=== PATIENT | male | born 1995 | race Caucasian/White ===

== ENCOUNTER 2020-11-21 07:31 | Outpatient (REF) | payer MEDICAID, SELFPAY ==
[2020-11-21 08:31] LABS: Estimated Average Glucose 111 mg/dL; Hemoglobin A1c % 5.5 %
[2020-11-21 08:44] LABS: Anion Gap 14 (12-20); Blood Urea Nitrogen 13 mg/dL (9-16); Calcium 9.8 mg/dL (8.4-10.2); Carbon Dioxide 25 mmol/L (22-29); Chloride 104 mmol/L (96-108); Cholesterol 170 mg/dL; Estimated Glomerular Filt Rate > 60; Glucose Random 95 mg/dL (60-115); HDL Cholesterol 45 mg/dL; LDL Cholesterol Calculated 105 mg/dl; Potassium 4.6 mmol/L (3.3-5.1); Sodium 138 mmol/L (135-145); Triglycerides 103 mg/dL
== END 2020-11-21 07:32 | disposition home or self-care (01) ==
LOC: HO.LAB 07:31
PROVIDERS: Absent Provider Internal Medicine Geriatric Medicine; PCP Internal Medicine Geriatric Medicine; Visit Provider Nurse Practitioner Family
DX: I69.015 Cognitive social or emotional deficit following nontraumatic subarachnoid hemorrhage (principal); S80.02XA Contusion of left knee, initial encounter; Z71.89 Other specified counseling
CPT/HCPCS: 36415; 80048; 80061; 83036

== ENCOUNTER 2021-08-23 07:29 | Outpatient (REF) | payer MEDICAID, SELFPAY ==
[2021-08-23 09:27] LABS: Hematocrit 44.3 % (42.0-52.0); Hemoglobin 13.7 g/dl (14.0-18.0); Mean Corpuscular HGB Conc 30.9 g/dl (31.0-36.0); Mean Corpuscular Volume 80.7 fL (80.0-98.0); Mean Platelet Volume 10.3 fL (9.4-12.4); Platelet Count 266 X10*3/uL (160-400); Red Blood Count 5.49 X10*6/uL (4.60-5.80); Red Cell Distribution Width 13.2 % (11.0-16.0); White Blood Count 6.1 X10*3/uL (4.8-10.8)
[2021-08-23 09:36] LABS: Estimated Average Glucose 120 mg/dL; Hemoglobin A1C 149.4792 umol/L; Hemoglobin A1c % 5.8 %
[2021-08-23 09:59] LABS: Alanine Aminotransferase 19 U/L (0-40); Albumin Level 4.6 g/dL (3.5-5.0); Alkaline Phosphatase 102 U/L (39-117); Anion Gap 12 (12-20); Aspartate Amino Transferase 18 U/L (5-37); Bilirubin Direct < 0.2 mg/dL (0.0-0.5); Bilirubin Total 0.4 mg/dL (0.0-1.0); Blood Urea Nitrogen 19 mg/dL (9-16); Calcium 10.1 mg/dL (8.4-10.2); Carbon Dioxide 27 mmol/L (22-29); Chloride 105 mmol/L (96-108); Cholesterol 207 mg/dL; Estimated Glomerular Filt Rate > 60; Glucose Random 101 mg/dL (60-115); HDL Cholesterol 42 mg/dL; LDL Cholesterol Calculated 146 mg/dl; Potassium 5.1 mmol/L (3.3-5.1); Sodium 139 mmol/L (135-145); Triglycerides 98 mg/dL
== END 2021-08-23 07:30 | disposition home or self-care (01) ==
LOC: HO.LAB 07:29
PROVIDERS: PCP Internal Medicine Geriatric Medicine; Visit Provider Internal Medicine Geriatric Medicine
DX: Z00.00 Encounter for general adult medical examination without abnormal findings (principal); Z13.1 Encounter for screening for diabetes mellitus; Z13.220 Encounter for screening for lipoid disorders
CPT/HCPCS: 36415; 80048; 80061; 80076; 83036; 85027

== ENCOUNTER 2024-07-04 08:15 | Outpatient (REF) | payer MEDICAID, SELFPAY ==
--- OUTSIDE RECORDS SUMMARY | 2024-07-04 08:29 | XMS_ITS | Data Portability ---
Author Organization [place] [facility] Address [address] [place] [address] Care Team Providers Care Chlorobutadiene Scrubber Operator Name Role Phone NAME, CATHERINE Primary Care Provider Assessment Encounter Date Assessment Date Assessment LastModified by Organization Details LastModified Time 07/05/2020 07/05/2020 Overview/History : 25yo male with a PMHx of Microcephaly, CP, ADHD, disturbance of salivary secretions & legally blind being seen today for crack in callus of R foot. No signs of infection or pain, pt is ambulating as normal. Exam: Limited d/t patients combativeness Pt is alert, moving all extremities, drooling and biting at his R hand, intermittently attempting to hit provider and staff Plantar Callus noted under R foot- no erythema or warmth, palpable pulses +CSM, no edema DDx considered, but not limited to: Plantar callus- likely Plantars wart considered Cellulitis considered- no signs of infection Plantar wound- no open area Acute fracture- no deformity or pain upon manipulation Work up/Results: Physical exam of foot only Plan/Discussion: Staff in agreement this is a condition he has had since he was a child, no signs of infection. Treatment would be a pumice stone/cream treatment however he would never tolerate this. He is combative at baseline, barely allowed examination. No new medications or recommendations. The patient is advised to make an appt with PCP in 3-5 days to discuss ongoing symptoms/ further management if needed. The patient is also advised to go to the ED immediately for any worsening symptoms. The patient understood and agreed with this plan. The patient was given discharge instructions and all questions were answered prior to DH team departure. Proper Personal Protective Equipment (PPE), including gloves, eye protection and masks were donned and doffed appropriately and all equipment cleaned using approved technique with germicidal disposable wipes prior to and after care of this patient according to [facility]'s infection prevention protocols. Time On Scene with Patient: 00:48:11 [email or web address] Not available 07/05/2020 16:18:28 10/19/2020 10/19/2020 Time On Scene with Patient: 01:02:35 [email or web address] Not available 10/19/2020 13:58:50 Plan of Treatment Reminders Order Date Submit Date Provider Last Modified By Organization Details Last Modified Time Details Appointments None recorded. Lab None recorded. Referral None recorded. Procedures None recorded. Surgeries None recorded. Imaging None recorded. Medication Orders Motrin IB 200 mg capsule 021 021 [facility], [address], [place], [place], [id number], 18:32:32 Patient TargetsNo targets recorded. Patient Instructions Encounter Date Encounter Id Patient Instructions Last Modified By Organization Details Last Modified Time 07/05/2020 [id number] Hand written instructions provided. [email or web address] Not available 07/05/2020 16:05:05 10/19/2020 [id number] learning about rice (rest, ice, compression, and elevation) Not available 10/19/2020 13:21:50 YOU WERE SEEN TODAY FOR LEFT KNEE PAIN AND SOFT TISSUE SWELLING. THERE IS NO EVIDENCE OF FRACTURE. WE PRESCRIBED MOTRIN 400 MG ORALL 3 TIMES A DAY WITH MEALS FOR THE NEXT FOUR DAYS NEEDED FOR THE SWELLING. IF SYMPTOMS RESOLVE PRIOR TO THE 4 DAYS, DC THE MEDICATION. PLEASE TAKE WITH FOOD. PLEASE UTILIZE RICE THERAPY TO ALLEVIATE SWELLING. REST ICE COMPRESSION (NOT NECESSARY) ELEVATE WE REALIZE THAT RICE THERAPY MAY IMPOSE A CHALLENGE GIVEN COGNITION OF PATIENT. PLEASE FOLLOW UP WITH PCP NEEDED. IF YOU DEVELOP FEVER, INCREASED SWELLING, REDNESS, INABILITY TO BEAR WT/WALK, PLEASE GO TO THE ER. Thank you for your visit with [facility] today. We cannot always find the exact cause of your symptoms during your initial visit. Please follow up with your primary care provider or specialist as needed to be rechecked or seek medical attention if your symptoms do not go away or get worse. If you develop any new or worsening symptoms and need after hours care, please go to nearest ER and/or call 911. If you have additional concerns or develop a change in your condition between 8am-10pm, please call [facility] at [phone] to help navigate your care. Not available 10/19/2020 13:24:22 Reason for Referral None Reported. Procedures Surgical History Date Name Laterality Status Provider Name and Address Organization Details Recorded Time 07/05/19 21 Medication Review completed Xiomy Em NP [address], [place], [address], [place] [facility] 07/05/2020 16:02:44 Imaging Results None recorded. Procedure Notes None recorded. Medical Equipment None Reported. Allergies No known drug allergies Medications Name Sig Start Date Stop Date Status Note LastModified by Organization Details LastModified Time clonidine HCl 0.1 mg tablet TAKE 1 TABLET BY MOUTH TWICE A DAY (8 AM AND 8 PM) active Not Available Not Available No t Available lorazepam 1 mg tablet TAKE 1 TABLET BY MOUTH 1 HOUR PRIOR TO MEDICAL APPTS, DENTAL APPTS, OR EYE EXAMS active Not Available Not Available No t Available Risperdal active Not Available Not Camryn ilable Not Available Motrin IB 200 mg capsule Take 2 capsules 3 times a day by oral route with meals for 4 days. 021 active Not Available Not Available Not Avai lable Vitals Date Recorded Respiratory rate Body temperature Provider Name and Address Organization Details Last Updated DateTime 10/19/2020 22 /min 98.7 [degF] Not Available [facility] 10/19/2020 13:03:10 Social History Question Answer Notes LastModified by Organizat ion Details LastModified Time Tobacco Smoking Status Never Smoker Xiomy Em NP [address], [place], [address], [place] [facility] 07/05/2020 16:15:41 Do You Have An Advance Directive? No Information not available 10/19/2020 What Is Your Code Status? Full Code Information not available 10/19/2020 Within The Past 12 Months, Has It Happened That The Food You Bought Just Didn't Last And You Didn't Have Money To Get More. No Information not available 10/19/2020 Within The Past 12 Months, Have You Worried That Your Food Would Run Out Before You Got Money To Buy More. No Information not available 10/19/2020 Fall Risk: Do You Feel Unsteady When Standing Or Walking? No Information not available 10/19/2020 We Know That How And When People Interact With Friends And Family Can Be Very Different From Person To Person. How Often Do You Have The Opportunity To See Or Talk To People That You Care About And Feel Close To? (Ex: Talking To Friends On The Phone Or Visiting Friends Or Family Or Going To [employer] Or Club Meetings) 1 Or 2 Times Per Week Information not available 10/19/2020 Excessive Alcohol Or Drug Use No Information not available 10/19/2020 We Know From Many Of Our Patients That Covering All Of Their Costs Can Be Difficult At Times. This Can Cause Stress And Impact Health. In The Past Year, Have You Been Unable To Get Any Of The Following When It Was Really Needed? No Information not available 10/19/2020 What Is Your Housing Situation Today? I Have Housing Information not available 10/19/2020 Would You Like Help Connecting To Resources? None Information not available 10/19/2020 Sex: Unknown Functional Status None recorded. Mental Status None recorded. Family History Nothing Reported Notes:pt nonverbal- familyhx unknown Medical History Condition Response Coronary Artery Disease N Depression N COPD N Cancer N Stroke N High Cholesterol N Kidney Disease N Diabetes N Asthma N Pulmonary Embolism N Hypertension N Past Encounters Encounter ID Performer Location Encounter Start Date Encounter Closed Date Diagnosis/Indication Diagnosis SNOMED-CT Code Diagnosis ICD10 Code Diagnosis Note [id number] Xiomy Em NP [facility] [address] [place] [address] 07/05/2020 15:38:32 07/08/2020 12:16:38 Foot callus 399882336 L84 Cerebral palsy 036165354 G80.9 microcephaly 93126 5009 Q02 Combativeness 642524830 F91.8 [id number] Emerald Morris NP [facility] [address] [place] [address] 10/19/2020 12:56:05 10/22/2020 17:37:26 Soft tissue swelling of knee joint 033074290 M25.469 Overview/H istory: Patient is a 25 year old male who is responsive to voice and touch. Patient chief complaint is a left knee injury suffered 4 days ago while running into his room, patient fell to his knees per staff. Patient medical history significan t for cerebral palsy, ADHD, microcepha ly, cognitive impairment , disturbanc e of salivery secretions and he is legally blind. Exam: able to obtain tympanic temperatur e, HR via auscultati on and respirator y rate this visit, successive attempts to obtain BP, 02 sat increased patient level of agitation. He did attempt to strike staff, provider and bite his hand in frustratio n with repeat attempts. Due to safety concerns, no BP and 02 sat readings obtained. HRR 88, S1, S2. LSCTA bilaterall y, no work of breathing, Abdomen SNT, + bowel sounds x 4 quads. Self ambulatory patient, moves all limbs without deficit. Patient gait unimpaired . There is minimal edema to anterior aspect of left knee. No balloting. Patient ROM to left knee intact. No crepitus. Left medial ecchymosis noted. I am able to palpate the left knee, patient does not indicate that there is pain. The right knee is normal in appearance , full ROM. No bruising, no ecchymosis . Negative Radha's sign bilaterall y. DDx considered , but not limited to: Soft tissue injury likely, no evidence of crepitus Left knee FX considered , no crepitus DVT unlikely, negative Homans Work up/Results : Exam Plan/Discu ssion: 1. RICE therapy reviewed 2. Motrin 400 mg PO 3 x daily with food while symptomati c with left knee swelling 3. XRAY considered , however patient would likely require sedation to complete procedure. Exam findings do not indicate fracture. Staff agrees to monitor swelling closely and monitor for improvemen t. Discussed acute ED precaution s. Staff is able to reiterate all discussed. Proper Personal Protective Equipment (PPE), including {{gloves, eye protection , masks, and gowns, shoe covers micah ves, eye protection and masks* micah ves, eye protection gloves, eye protection , N95 mask, gown, and shoe covers tiffanie gical mask with face-shiel d, gloves, gown and shoe covers tiffanie gical mask with face-shiel d, gloves}} [facility] and all equipment cleaned using approved technique with germicidal disposable wipes prior to and after care of this patient according to [facility]'s infection prevention protocols. In order to obtain further informatio n and compare any laboratory results/va lues, I have accessed {{old patient records* p atient records on the [employer] [facility] [employer] r eviewed records with the PCP}}. This informatio n was pertinent in my medical decision making today. Ecchymosis [id number] R58 Health Concerns Section Related Observation LastModified by Organization Detai ls LastModified Time None Recorded Concern Status LastModified by Organization Details LastModified Time None Recorded Advance Directives Directive N: Payers Encounter Date Sequence Insurance Name Policy Number Policy Weaver Covered Member ID Weaver Member ID Guarantor Name 07/05/2020 1 [place] [id number] 10/19/2020 1 [place] [facility] [id number] [facility] Notes Date Note Type Note Provider Name and Address Organization Details Recorded Time 07/05/2020 text/html 25yo male who is new to with a PMHx of CP, ADHD, Microcephaly and disturbance of salivary secretions & legally blind being seen today for a crack noted on R plantar callus. Staff reports it has been there since [facility] at this [facility], they believe he had a cut there as a child that resulted in a crack. There are no signs of infection or discomfort. At baseline, patient is very combative. He is nonverbal but screams out. He is ambulating as normal. No fevers. Xiomy Em, SUSIE [address], [place], [address], [place] [facility] 07/05/2020 18:25:21 10/19/2020 text/html Patient is a 25 year old male who is alert to touch. Patient is non-verbal and cognitively delayed. Patient [facility] caregivers state that patient was running to his room 4 days ago and fell to his knees, there is swelling and bruising to the left knee. The fall was witnessed, patient did not strike his head or lose consciousness. He has been ambulatory. Patient medical history significant for cerebral palsy, ADHD, microcephaly, disturbance of salivary secretions and he is legally blind. Emerald Morris, SUSIE [address], [place], [address], [place] [facility] 10/20/2020 14:15:19
[2024-07-04 11:24] LABS: Anion Gap 13 (12-20); Blood Urea Nitrogen 18 mg/dL (9-16); Calcium 9.1 mg/dL (8.4-10.2); Carbon Dioxide 27 mmol/L (22-29); Chloride 106 mmol/L (96-108); Cholesterol 151 mg/dL (<200); Estimated Glomerular Filt Rate > 60; Glucose Random 94 mg/dL (60-115); HDL Cholesterol 41 mg/dL (>40); LDL Cholesterol Calculated 98 mg/dL (<100); Potassium 4.6 mmol/L (3.3-5.1); Sodium 141 mmol/L (135-145); Triglycerides 63 mg/dL (<150)
== END 2024-07-04 08:16 | disposition home or self-care (01) ==
LOC: HO.HHCL 08:15
PROVIDERS: Visit Provider Internal Medicine Geriatric Medicine
DX: Z00.00 Encounter for general adult medical examination without abnormal findings (principal); F79 Unspecified intellectual disabilities; F60.3 Borderline personality disorder; F90.1 Attention-deficit hyperactivity disorder, predominantly hyperactive type; B35.4 Tinea corporis
CPT/HCPCS: 36415; 80048; 80061

== ENCOUNTER 2025-03-02 08:18 | Outpatient (REF) | payer MEDICAID, SELFPAY ==
--- OUTSIDE RECORDS SUMMARY | 2025-03-02 08:22 | XMS_ITS | Clinical Summary ---
Author Organization [employer] Address [address] [place] [address] [address] [place] [address] Care Team Providers Care Deputy K 9 Name Role Phone Name, Shiva MICHELLE Primary Care Provider [phone] Allergies No known active allergies Medications bacitracin 500 UNIT/GM ointmentIndica tions:Rash small amount PRN twice a day for superficial wounds and abrasions 29 g 5 023 Active cloNIDine (Catapres) 0.1 MG tablet clonidine HCl 0.1 mg tablet TAKE 1 TABLET BY MOUTH TWICE A DAY (8 AM AND 8 PM) 018 Active LORazepam (Ativan) 1 MG tablet lorazepam 1 mg tablet TAKE 1 TABLET BY MOUTH 1 HOUR PRIOR TO MEDICAL APPTS, DENTAL APPTS, OR EYE EXAMS Active risperiDONE (RisperDAL) 3 MG tablet Take 1 tablet by mouth every 12 (twelve) hours. 020 Active polyethylene glycol, PEG, 3350 (Glycolax) 17 GM/SCOOP powder TAKE 17 GRAMS BY MOUTH IN THE MORNING. 510 g 025 Active Fleet Bisacodyl 10 MG/30ML enema INSERT 1 ENEMA RECTALLY ONCE 37 mL 025 Active acetaminophen (Tylenol 8 Hour) 650 MG ER tabletIndicati ons:Chronic pain syndrome Take 1 tablet by mouth every 4 hours as needed for headache, pain or fever greater than 100F 90 tablet 025 Active docusate sodium (Colace) 100 MG capsule Take 1 capsule (100 mg) by mouth 2 times daily. 180 capsule 025 Active Glycerin, Adult, 2 g suppository INSERT 1 SUPPOSITORY INTO THE RECTUM IF NEEDED EACH DAY (IF NO BOWEL MOVEMENT FOR 3 DAYS). 10 suppository 2 Active Glycerin, Adult, 2 g suppository Insert 1 suppository into the rectum if needed each day (if no bowel movement for 3 days). 10 suppository 3 023 2024 Discontinued Fleet Bisacodyl 10 MG/30ML enema INSERT 30 ML (10 MG) INTO THE RECTUM 1 (ONE) TIME FOR 1 DOSE. 37 mL 025 2024 Discontinued docusate sodium (Colace) 100 MG capsule TAKE 1 CAPSULE BY MOUTH TWICE A DAY 180 capsule 025 2024 Discontinued(R eorder (will not trigger notification to Pharmacy)) acetaminophen (Tylenol 8 Hour) 650 MG ER tabletIndicati ons:Chronic pain syndrome TAKE 1 TABLET BY MOUTH EVERY 4 HOURS NEEDED FOR HEADACHE, PAIN OR FEVER GREATER THAN 100F 90 tablet 025 2024 Discontinued(R eorder (will not trigger notification to Pharmacy)) Active Problems Problem Noted Date Diagnosed Date Microcephaly (CMS/HCC) 04/02/2023 3 Drug-induced constipation 12/16/2022 Assessment & Plan (12/16/2022 2:06 PM EDT): After speaking with [facility] nurse his constipation is more than likely a drug induced side effect of glycopyrrolate. I discontinued his glycopyrrolate which we have documented in his [facility] EMR. I was also requested to discontinue medications that are not in his [facility] EMR; miralax, and fleet bisacodyl enema, for their companies ([facility] [employer]) physical log. Which I did. I prescribed him lactulose to use daily, if he has no BM for 48 hours. He is to follow up with his PCP in 3 months to assess if he still needs lactulose after discontinuing the glycopyrrolate. Prediabetes 10/20/2022 Urinary incontinence 08/13/2016 Sialorrhea 03/21/2013 Assessment & Plan (12/16/2022 11:56 AM EDT): Staff and nurse from [facility] care service report that he is drooling again, the glycopyrrolate is no longer helping. Uptodate reports constipation as a 30% adverse reaction. Cerebral palsy 03/21/2013 Intellectual disability 10/05/2011 Explosive personality disorder (CMS/HCC) 012 Attention deficit hyperactivity disorder 012 Encounters Date Type Department Care Team Description 02/27/2025 Refill [facility] [address] [place] [address] NameShiva MD 02/14/2025 Refill [facility] [address] [place] [address] Shiva العراقي MD 02/05/2025 Refill [facility] [address] [place] [address] NameShiva MD Chronic pain syndrome 02/02/2025 Refill [facility] [address] [place] [address] NameShiva MD 01/17/2025 Telephone [facility] [address] [place] [phone] Shiva العراقي MD 01/16/2025 Telephone [facility] [address] [place] [address] Shiva العراقي MD Appointment Request 12/18/2024 Refill [facility] [address] [place] [address] Shiva العراقي MD 11/30/2024 1:45 PM EDT Office Visit [facility] [address] [place] [phone] NameShiva MD PE (physical exam), routine (Primary Dx); Intellectual disability 11/30/2024 Travel from Last 3 Months Immunizations Immunization Administration Dates Next Due DTaP 10/01/1999, 7,1995,07/29,1995 Hep A, ped/adol, 2 dose 03/21/2013,08/29/2010 Hep B, Adolescent or Pediatric 1995,1995,1995 Hib (HbOC) 07/12/1996, 6,1995,05/25 IPV 10/01/1999, 6,1995,05/25 Influenza injectable quadriv alent IIV4 with preservative 04/20/2018 Influenza injectable quadriv alent preservative free 05/20/2020 Influenza, IIV3, injectable 02/06/2009 Influenza, Split (incl. flip fied surface antigen) 03/21/2013 Influenza, seasonal, injecta ble, preservative free 03/29/2024 MMR 10/01/1999,03/08/1996 Meningococcal MCV4P ACYW-135 08/29/2010 Meningococcal MPSV4 07/29/2006 Moderna Covid-19 Vaccine 12+ 04/05/2021 Pfizer Covid-19 Vaccine 12+ 03/29/2024 Tdap 04/20/2018,07/28/2007 Varicella 07/28/2007 Social History Tobacco Use Types Packs/Day Years Used Date Smoking Tobacco: Never Smokeless Tobacco: Never Tobacco Cessation:Counseling Given: Not Answered Alcohol Use Standard Drinks/Week Comments Never 0 (1 standard drink = 0.6 oz pur e alcohol) Depression Answer Date Recorded Patient Health Questionnaire-9 Score 14 11/30/2024 Patient Health Questionnaire-9 Score 14 11/30/2024 Last PHQ-9: Questionnaire Data Not on file 0 11/30/2024 Housing Stability Answer Date Recorded What is your housing situation today? I have rohith harry 03/16/[address] you li ve. Do you have problems with any of the following? None of the above 03/16/2023 Food Insecurity Answer Date Recorded Within the past 12 months, y ou worried that your food would run out before you got money to buy more: Never True 03/16/2023 Within the past 12 months,th e food you bought just didn't last and you didn't have enough money to get more: Never True Transportation Answer Date Recorded In the past 12 months, has l ack of transportation kept you from medical appts, meetings, work or from getting things needed for daily living? No 03/16/2023 Utilities Answer Date Recorded In the past 12 months, has t he electric, gas, oil or water company threatened to shut off services in your home? No 03/16/2023 Depression Answer Date Recorded Patient Health Questionnaire-2 Score 5 11/30/2024 Sex and Gender Information Value Date Recorded Sex Assigned at Male 03/23/2022 10:16 AM EDT Legal Sex Male 10:16 AM EDT Gender Identity Male 03/23/2022 10:16 AM EDT Sexual Orientation Don't know 03/23/2022 10 :16 AM EDT Last Filed Vital Signs Vital Sign Reading Time Taken Comments Blood Pressure 129/85 11/30/2024 1:59 PM EDT Pulse 92 11/30/2024 1:59 PM EDT Temperature 36.6 C (97.9 F) 11/30/2024 1:59 PM EDT Respiratory Rate 18 11/30/2024 1:59 PM EDT Oxygen Saturation 97% 12/16/2022 11:37 AM EDT Inhaled Oxygen Concentration - - Weight 67.1 kg (148 lb) 11/30/2024 1:59 PM EDT Height 162.6 cm (5' 4 ) 11/30/2024 1:59 PM EDT Body Mass Index 25.4 11/30/2024 1:59 PM EDT Plan of Treatment Upcoming Encounters Date Type Department Care Team (Late st Contact Info) Description 03/06/2025 10:15 AM EDT Office Visit [facility] [address] [place] [phone] Name, MD Shiva [address] [place] [address] Health Maintenance Due Date Last Done Comments HIV Screening 1995 Alcohol/Substance Use Screening 2007 Family Planning (PISQ) 2010 HPV Vaccines (1 - Male 3-dose series) 2010 Hepatitis C Screening 2013 Diabetes: Hemoglobin A1C 08/23/2022 08/23/2021, 07/0 05/2020 SDOH Screening 10/14/2023 10/13/2022 Influenza Vaccine (#1) 2025 , 02/06/2022, 05/20/2020, Additional history exists Depression Monitoring 06/02/2025 11/30/2024, 025 Disability Screening 11/30/2025 11/30/2024 Tobacco Screening 12/01/2025 12/01/2024 DTaP/Tdap/Td Vaccines (8 - Td or Tdap) 04/20/2028 04/20/2018, 07/28/2007, 10/01/1999, Additional history exists Zoster Vaccines (1 of 2) 2045 RSV Patients and Patients Aged 60 years or older (1 - 1-dose 75+ series) 2070 Hepatitis B Vaccines Completed 1995, 1995, 1995 HIB Vaccines Completed 07/12/1996, 09/21, 1995, Additional history exists IPV Vaccines Completed 10/01/1999, 09/21, 1995, Additional history exists Meningococcal Vaccine Aged Out 08/29/2010, 007 No longer eligible based on patient's age to complete this topic Hepatitis A Vaccines Completed 03/21/2013, 08/30/19 11 COVID-19 Vaccine Completed 03/29/2024, 06/2022, 02/06/2022, Additional history exists Meningococcal B Vaccine Aged Out No l onger eligible based on patient's age to complete this topic Pneumococcal Vaccine: Pediatrics (0 to 5 Years) and At-Risk Patients (6 to 49) Years Aged Out No longer eligible based on patient's age to complete this topic RSV under 20 months Aged Out No longe r eligible based on patient's age to complete this topic Rotavirus Vaccines Aged Out No longer eligible based on patient's age to complete this topic Procedures Procedure Name Priority Date/Time Associated Diagnosis Comments [facility] HISTORICAL HEMOGLOBIN A1C Routine 08/23/2021 7:51 AM EDT from Last 3 Months or Most Recently Relevant to Health Maintenance Results * HEMOGLOBIN A1C (08/23/2021 7:51 AM EDT) Pathologist [facility] Estimated Average Glucose 120 mg/dL [facility] Comment: eAG = Estimated average glucose which is %A1C expressed as average glucose, using the formula of the [id number] Average Glucose study (ADAG), Diabetes Care, Vol.31,#8, Dec. 2007 Hemoglobin A1c % 5.8 % [facility] Comment: Hemoglobin A1C Reference Range Adults: 4.8 - 6.0 % Non diabetic: < 6.0 % Goal: < 7.0 % Additional Action Suggested: > 8.0 % Note: Hemoglobin A1c results are invalid for patients with abnormal amounts of HbF. Blood transfusions may impact the HbA1c concentration in the patient sample. 08/23/2021 7:51 AM EDT us Shiva العراقي MD HISTORICAL/NON ORDERABLE LABS Fi nal Result Performing Organization Address City/State/[facility] Co de Phone Number [facility] [address] from Last 3 Months or Most Recently Relevant to Health Maintenance Insurance [employer] Care Teams Deputy K 9 Relationship Specialty Start Date End Date Name, MD Shiva [address] [place] [id number] PCP - General Family Medicine 06/04/15
--- OUTSIDE RECORDS SUMMARY | 2025-03-02 08:22 | XMS_ITS | Encounter Summary ---
Author Organization [employer] Address [address] [facility] 7t [place] [address] Care Team Providers Care Range Master Name Role Phone Name, Shiva MICHELLE Primary Care Provider [phone] Encounter Details Date Type Department Care Team (Late st Contact Info) Description 03/17/2023 Abstract [facility] MEDICINE [address] [place], [place] [phone] Name, MD Shiva [address] [place] [address] Social History Tobacco Use Types Packs/Day Years Used Date Smoking Tobacco: Never Smokeless Tobacco: Never Alcohol Use Standard Drinks/Week Comments Never 0 (1 standard drink = 0.6 oz pur e alcohol) Depression Answer Date Recorded Patient Health Questionnaire-9 Score 0 10/20/2022 Housing Stability Answer Date Recorded What is your housing situation today? I have rohithemilio harry 03/16/[address] you [...] Answer Date Recorded Patient Health Questionnaire-2 Score 0 10/20/2022 Sex and Gender Information Value Date Recorded Sex Assigned at Male 03/23/2022 10:16 AM EDT Legal Sex Male 10:16 AM EDT Gender Identity Male 03/23/2022 10:16 AM EDT Sexual Orientation Don't know 03/23/2022 10 :16 AM EDT documented as of this encounter Plan of Treatment Upcoming Encounters Date Type Department Care Team (Late st Contact Info) Description 03/06/2025 10:15 AM EDT Office Visit [facility] MEDICINE [address] [place] [address] Name, MD Shiva [address] [place] [address] documented as of this encounter Visit Diagnoses Not on filedocumented in this encounter Additional Health Concerns Assessment Noted Time PHQ-9 Depression Total Score: 0 10/21/19 23 10:15 AM EDT documented as of this encounter Care Teams Range Master Relationship Specialty Start Date End Date NameShiva MD [address] [place] [address] PCP - General Family Medicine 06/04/15 documented as of this encounter
--- OUTSIDE RECORDS SUMMARY | 2025-03-02 08:22 | XMS_ITS | Encounter Summary ---
Author Organization [employer] Address [address] [facility] 7[address] [place] [address] Care Team Providers Care School Speech Therapist Name Role Phone Name, Shiva MICHELLE Primary Care Provider [phone] Reason for Visit * Reason Onset Date Comments ER Follow-up 12/07/2022 Encounter Details Date Type Department Care Team ([facility] st Contact Info) Description 12/07/2022 Telephone [facility] MEDICINE [address] [place], [place] [phone] Name, MD Shiva [address] [place] [address] ER Follow-up Social History Tobacco Use Types Packs/Day Years Used Date Smoking Tobacco: Never Smokeless Tobacco: Never Alcohol Use Standard Drinks/Week Comments Never 0 (1 standard drink = 0.6 oz pur e alcohol) Depression Answer Date Recorded Patient Health Questionnaire-9 Score 0 10/20/2022 Depression Answer Date Recorded Patient Health Questionnaire-2 Score 0 10/20/2022 Sex and Gender Information Value Date Recorded Sex Assigned at Male 03/23/2022 10:16 AM EDT Legal Sex Male 10:16 AM EDT Gender Identity Male 03/23/2022 10:16 AM EDT Sexual Orientation Don't know 03/23/2022 10 :16 AM EDT documented as of this encounter Miscellaneous Notes * Telephone Encounter - Ana Laura Baumann RN - 12/07/2022 2:41 PM EDT T/C to [phone] for below message, pt. Is at intermediate, intermediate Guide Alphonse fierro , spoke with Liliane. Liliane states pt. Was bring to ED due to constipation, pt. Does not had BM for 5 days, ED gave 4 different medication and pt. Has BM on Wednesday morning. Pt. Is doing o.k. pt. Schedule for ED follow up apt. On 12/16/2022. Advised to go to nearest ED in case of any new or worsening symptoms. [facility] hours are reviewed. Ed dennis is in pt.'s chart. * Telephone Encounter - Naima Montez - 12/07/2022 12:21 PM EDT Patient calling to report ED visit on 12/04/22 at [facility]. Seen for constipation. Patient advised will forward to team nurse for follow up Please call [phone]. Patient is willing to see any provider. documented in this encounter Plan of Treatment Upcoming Encounters Date Type Department Care Team (Late st Contact Info) Description 03/06/2025 10:15 AM EDT Office Visit [facility] MEDICINE [address] [place] [phone] NameShiva MD [address] [place] [phone] documented as of this encounter Visit Diagnoses Not on filedocumented in this encounter Additional Health Concerns Assessment Noted Time PHQ-9 Depression Total Score: 0 10/21/19 10:15 AM EDT documented as of this encounter Care Teams School Speech Therapist Relationship Specialty Start Date End Date NameShiva MD [address] [place] [id number] PCP - General Family Medicine 06/04/15 documented as of this encounter
--- OUTSIDE RECORDS SUMMARY | 2025-03-02 08:22 | XMS_ITS | Encounter Summary ---
Author Organization [employer] Address [address] [facility] 7t [place] [address] Care Team Providers Care Structural Metal Worker Name Role Phone Name, Shiva MICHELLE Primary Care Provider [phone] Reason for Visit * Reason Comments Med Refill Encounter Details Date Type Department Care Team ([facility] Contact Info) Description 02/27/2025 Refill [facility] MEDICINE [address] [place], [place] [phone] Name, MD Shiva [address] [place] [address] Social History Tobacco Use Types Packs/Day Years [...] Description 03/06/2025 10:15 AM EDT Office Visit [facility] MEDICINE [address] [place] [address] Name, MD Shiva [address] [place] [address] documented as of this encounter Visit Diagnoses Not on filedocumented in this encounter Additional Health Concerns Assessment Noted Time PHQ-9 Depression Total Score: 14 025 2:23 PM EDT documented as of this encounter Care Teams Structural Metal Worker Relationship Specialty Start Date End Date NameShiva MD [address] [place] [address] PCP - General Family Medicine 06/04/15 documented as of this encounter
--- OUTSIDE RECORDS SUMMARY | 2025-03-02 08:22 | XMS_ITS | Clinical Summary ---
Author Organization [facility] Address [address] [place] [address] Phone Care Team Providers Care Chute Tapper Name Role Phone [place], [facility] Social History Tobacco Use Types Packs/Day Years Used Date Smoking Tobacco: Never Assessed Sex and Gender Information Value Date Recorded Sex Assigned at Male 01/07/2024 1:47 PM EDT Legal Sex Male 1:47 PM EDT Gender Identity Not on file Sexual Orientation Not on file Last Filed Vital Signs Vital Sign Reading Time Taken Comments Blood Pressure - - Pulse - - Temperature - - Respiratory Rate - - Oxygen Saturation - - Inhaled Oxygen Concentration - - Weight 68.1 kg (150 lb 2.1 oz) 07/31/2022 9:09 A M EST Height 160 cm (5' 2.99 ) 07/31/2022 9:09 AM EST Body Mass Index 26.6 07/31/2022 9:09 AM EST Plan of Treatment Upcoming Encounters Date Type Department Care Team (Latest Contact Info) Description 04/05/2025 10:00 AM EST Hospital Encounter [facility] OR [address] [place] [address] [phone] Higinio Harper DMD [address] [place] [address] 04/05/2025 10:00 AM EST - 04/05/2025 12:00 PM EST Surgery [facility] [place] [address] [place] [address] [phone] Higinio Harper DMD [address] [place] [address] Oral Rehabilitation (90 min) [[id number] (CPT )] Scheduled Procedures Name Priority Associated Diagnoses Date/Ti me Oral Rehabilitation (90 min) Dental caries 04/05/2025 10:00 AM EST Health Maintenance Due Date Last Done Comments Chlamydia and Gonorrhea Screening 1995 HIV Screening 1995 MMR Vaccines (1 of 1 - Stand jazmine series) 1996 DTaP/Tdap/Td Vaccines (1 - Tdap) 2002 Varicella Vaccines (1 of 2 - 13+ 2-dose series) 2008 Hepatitis C Screening 2013 Hepatitis B Vaccines (1 of 3 - 19+ 3-dose series) 2014 Influenza Vaccine (#1) 2025 HIB Vaccines Aged Out No longer eligi ble based on patient's age to complete this topic HPV Vaccines (No Doses Required) Completed Hepatitis A Vaccines Aged Out No long er eligible based on patient's age to complete this topic IPV Vaccines Aged Out No longer eligi ble based on patient's age to complete this topic Meningococcal B Vaccine Aged Out No l onger eligible based on patient's age to complete this topic Meningococcal Vaccine Aged Out No jaqueline marino eligible based on patient's age to complete this topic Pneumococcal Vaccine: Pediat rics (0 to 5 Years) and At-Risk Patients (6 to 49 Years) Aged Out No longer eligible b ased on patient's age to complete this topic Rotavirus Vaccines Aged Out No longer eligible based on patient's age to complete this topic Insurance [facility] Care Teams Chute Tapper Relationship Specialty Start Date End Date [facility] [address] [place] [id number] PCP - Insurance Identified PCP 01/23/24
[2025-03-02 12:07] LABS: Alanine Aminotransferase 19 U/L (0-40); Albumin Level 4.9 g/dL (3.5-5.0); Alkaline Phosphatase 79 U/L (39-117); Anion Gap 12 (12-20); Aspartate Amino Transferase 23 U/L (5-37); Blood Urea Nitrogen 14 mg/dL (9-16); Calcium 10.0 mg/dL (8.4-10.2); Carbon Dioxide 27 mmol/L (22-29); Chloride 106 mmol/L (96-108); Estimated Glomerular Filt Rate > 60; Potassium 4.6 mmol/L (3.3-5.1); Sodium 140 mmol/L (135-145); Total Protein 8.2 g/dL (6.5-8.0)
== END 2025-03-02 08:19 | disposition home or self-care (01) ==
LOC: HO.10HDL 08:18
PROVIDERS: Visit Provider Internal Medicine Geriatric Medicine
DX: Z00.00 Encounter for general adult medical examination without abnormal findings (principal)
CPT/HCPCS: 36415; 80053